=== PATIENT | female | born 1995 | race Caucasian/White ===

== ENCOUNTER 2017-06-30 01:15 | Emergency (ER) | payer SELFPAY ==
[2017-06-30 02:12] LABS: ABSOLUTE EOSINOPHILS # (AUTO) 0.1 10^3/uL (0.0-0.6); ABSOLUTE LYMPHOCYTES (AUTO) 2.5 10^3/uL (0.5-4.7); ABSOLUTE MONOCYTES (AUTO) 0.7 10^3/uL (0.1-1.4); ABSOLUTE NEUT (AUTO) 6.2 10^3/uL (1.7-8.2); BASOPHILS % (AUTO) 0.2 % (0-2); EOSINOPHILS % (AUTO) 0.8 % (0-6); HEMATOCRIT 44.6 % (36.0-47.0); HEMOGLOBIN 15.4 g/dL (12.0-15.5); HGB HCT DIFFERENCE 1.6; LYMPHOCYTES % (AUTO) 26.3 % (13-45); MEAN CORPUSCULAR HEMOGLOBIN 31.7 pg (27.0-33.4); MEAN CORPUSCULAR HGB CONC 34.6 g/dL (32.0-36.0); MEAN CORPUSCULAR VOLUME 92 fl (80-97); MONOCYTES % (AUTO) 7.5 % (3-13); RED BLOOD COUNT 4.86 10^6/uL (3.72-5.28); RED CELL DISTRIBUTION WIDTH 12.6 % (11.5-14.0); SEGMENTED NEUTROPHILS % (AUTO) 65.2 % (42-78); WHITE BLOOD COUNT 9.5 10^3/uL (4.0-10.5)
[2017-06-30] MEDS ORDERED: METOCLOPRAMIDE HCL 10 MG TABLET PO ONE ×2 (02:19→02:54)
[2017-06-30 02:24] LABS: ALANINE AMINOTRANSFERASE 56 U/L (9-52); ALBUMIN 4.4 g/dL (3.5-5.0); ALKALINE PHOSPHATASE 76 U/L (38-126); ANION GAP 13 (5-19); ASPARTATE AMINO TRANSFERASE 44 U/L (14-36); BILIRUBIN,DIRECT 0.3 mg/dL (0.0-0.4); BILIRUBIN,TOTAL 0.7 mg/dL (0.2-1.3); BLOOD UREA NITROGEN 11 mg/dL (7-20); CALCIUM 9.6 mg/dL (8.4-10.2); CARBON DIOXIDE 26 mmol/L (22-30); CHLORIDE 106 mmol/L (98-107); CREATININE RESULT 0.69 mg/dL (0.52-1.25); GLUCOSE 82 mg/dL (75-110); POTASSIUM 4.1 mmol/L (3.6-5.0); SODIUM 145.2 mmol/L (137-145); TOTAL PROTEIN 7.4 g/dL (6.3-8.2)
--- NOTE | 2017-06-30 02:41 | ER Document Report ---
ED GI/ - General Chief Complaint: Vomiting Stated Complaint: VOMITING Time Seen by Provider: 06/30/17 02:19 Notes: The patient is a 22-year-old female, , LMP 4 weeks ago, presents with 1 day of nausea and vomiting. She took a home test was positive today. She has not been able to eat much earlier today. She denies abdominal pain, hematemesis, urinary symptoms, vaginal bleeding, flank pain, fevers or chest pain. TRAVEL OUTSIDE OF THE [place] IN LAST 30 DAYS: No - Related Data Allergies/Adverse Reactions: No Known Allergies Allergy (Unverified 06/30/17 01:27) Past Medical History - General Information source: Patient - Social History Smoking Status: Never Smoker Family History: Reviewed & Not Pertinent Patient has suicidal ideation: No Patient has homicidal ideation: No Renal/ Medical History: Denies: Hx Peritoneal Dialysis Review of Systems - Review of Systems Notes: REVIEW OF SYSTEMS: CONSTITUTIONAL: -fevers, -chills EENT: -eye pain, -difficulty swallowing, -nasal congestion CARDIOVASCULAR:-chest pain, -syncope. RESPIRATORY: -cough, -SOB GASTROINTESTINAL: -abdominal pain, +nausea, +vomiting, -diarrhea GENITOURINARY: -dysuria, -hematuria MUSCULOSKELETAL: -back pain, -neck pain SKIN: -rash or skin lesions. HEMATOLOGIC: -easy bruising or bleeding. LYMPHATIC: -swollen, enlarged glands. NEUROLOGICAL: -altered mental status or loss of consciousness, -headache, - neurologic symptoms PSYCHIATRIC: -anxiety, -depression. ALL OTHER SYSTEMS REVIEWED AND NEGATIVE. Physical Exam - Vital signs Vitals: Temp Pulse Resp BP Pulse Ox 97.7 F 91 18 121/71 100 06/30/17 01:23 06/30/17 01:23 06/30/17 01:23 06/30/17 01:23 06/30/17 01:23 - Notes Notes: PHYSICAL EXAMINATION: GENERAL: Well-appearing, well-nourished and in no acute distress. HEAD: Atraumatic, normocephalic. EYES: Pupils equal round and reactive to light, extraocular movements intact, sclera anicteric, conjunctiva are normal. ENT: nares patent, oropharynx clear without exudates. Moist mucous membranes. NECK: Normal range of motion, supple without lymphadenopathy LUNGS: Breath sounds clear to auscultation bilaterally and equal. No wheezes rales or rhonchi. HEART: Regular rate and rhythm without murmurs ABDOMEN: Soft, nontender, normoactive bowel sounds. No guarding, no rebound. No masses appreciated. EXTREMITIES: Normal range of motion, no pitting or edema. No cyanosis. NEUROLOGICAL: Cranial nerves grossly intact. Normal speech, normal gait. Normal sensory and motor exams. PSYCH: Normal mood, normal affect. SKIN: Warm, Dry, normal turgor, no rashes or lesions noted. Course - Re-evaluation Re-evalutation: Patient has absolutely no abdominal tenderness or vaginal bleeding. She is about 4 weeks using her last menstrual period. Her urinalysis does not show evidence of UTI. It does show evidence of ketones, but her blood work is fine. Patient is drinking in the emergency room without any nausea or vomiting after oral reglan. Instructed her to stay hydrated and f/u with the [facility]. - Vital Signs Vital signs: Temp Pulse Resp BP Pulse Ox 97.7 F 91 18 121/71 100 06/30/17 01:23 06/30/17 01:23 06/30/17 01:23 06/30/17 01:23 06/30/17 01:23 - Laboratory Result Diagrams: 06/30/17 01:55 06/30/17 01:55 Laboratory results interpreted by me: 06/30/17 06/30/17 01:55 02:46 Sodium 145.2 H AST 44 H ALT 56 H Urine Protein 30 H Urine Ketones 80 H Ur Leukocyte Esterase SMALL H Urine HCG, Qual POSITIVE H Discharge - Discharge Clinical Impression: Vomiting affecting Condition: Stable Disposition: HOME, SELF-CARE Additional Instructions: VOMITING: Vomiting (or nausea without vomiting) can be caused by many other different problems. It can mean that something's wrong with the stomach, such as ulcers or inflammation or the intestinal tract, such as appendicitis. But it can also be a symptom of a problem that has nothing to do with the stomach or intestines. Vomiting is common with severe headaches, earaches, tonsillitis, and kidney infections, etc. We see it with pneumonia or heart attacks. Drugs can cause nausea and vomiting. Many abdominal problems cause vomiting; for example, gallstones, kidney stones, pancreatitis, and intestinal obstruction ( blocked bowels). In most cases, curing the vomiting depends on fixing the problem that caused it. For temporary relief, we may use an anti-nausea medicine. For home use, we can prescribe suppositories, chewable pills, pills that dissolve in the mouth, or liquid anti-nausea drugs. If the vomiting seems to be caused by a problem in the stomach, acid-suppressing drugs may be prescribed as well. It's important to avoid dehydration. Sip small amounts of clear liquids ( soft drinks, tea, broth, etc) . Try to take fluids frequently even if you are vomiting to prevent dehydration. Take increasing amounts of fluid and when liquids are being consumed successfully, advance to small amounts of bland food (toast, soups, mashed potatoes, etc.) until you are able to resume a regular diet. Avoid aspirin, tobacco, and alcohol. If the vomiting worsens, if the problem that's making you vomit worsens, or if there's evidence of bleeding in the stomach (such as black, tarry stool, or bloody or black vomit), you should return immediately. Also, return if abdominal pain worsens or becomes localized to one area or you develop high fever. Call your doctor if you aren't improved in 24 hours. ANTINAUSEA MEDICATION: You have been given a medication to suppress nausea and vomiting. This type of medication can be given as a shot, pill, or suppository. It will usually last for many hours. Pills and shots usually last six to eight hours. For the typical illness, only one or two doses of the medication may be necessary. Mild lightheadedness may occur. This type of medicine can cause drowsiness. Do not drive or operate dangerous machinery while under its influence. Do not mix with alcohol. See your doctor at once if you have muscle spasms or tightness, or uncontrollable motions (particularly of the neck, mouth, or jaw). Persistent vomiting or severe lightheadedness should also be evaluated by the physician. FOLLOW-UP CARE: If you have been referred to a physician for follow-up care, call the physician s office for an appointment as you were instructed or within the next two days. If you experience worsening or a significant change in your symptoms, notify the physician immediately or return to the Emergency Department at any time for re-evaluation. Prescriptions: Doxylamine Succinate/Vit B6 [Hay Arguello 10-10 mg Tablet] 1 each PO Q8H PRN #15 tablet.dr REYES Reason: Referrals: [facility] [Outside] - Follow up as needed
[2017-06-30 03:23] LABS: APPEARANCE,URINE CLOUDY; BILIRUBIN,URINE NEGATIVE (NEGATIVE); GLUCOSE, URINE NEGATIVE (NEGATIVE); KETONES,URINE 80 mg/dL (NEGATIVE); LEUKOCYTE ESTERASE,URINE SMALL (NEGATIVE); NITRITE,URINE NEGATIVE (NEGATIVE); PROTEIN,URINE 30 mg/dL (NEGATIVE); URINE SPECIFIC GRAVITY 1.028; UROBILINOGEN,URINE NEGATIVE mg/dL (<2.0)
[2017-06-30 03:43] LABS: BACTERIA,URINE 3+ /HPF; RBC,URINE NONE SEEN /HPF
[2017-06-30 04:00] VITALS: BP 114/60
== END 2017-06-30 03:45 | disposition home or self-care (01) ==
LOC: ER 01:15
DX: O21.9 Vomiting of pregnancy, unspecified (principal); Z3A.01 Less than 8 weeks gestation of pregnancy
CPT/HCPCS: 36415; 80053; 81001; 81025; 85025; 99284

== ENCOUNTER 2017-12-20 20:45 | Outpatient (CLI) | payer MEDICAID ==
[2017-12-20 21:42] LABS: URINE AMPHETAMINES SCREEN NEGATIVE; URINE BARBITURATES SCREEN NEGATIVE; URINE BENZODIAZEPINES SCREEN NEGATIVE; URINE COCAINE SCREEN NEGATIVE; URINE MARIJUANA (THC) SCREEN NEGATIVE; URINE METHADONE SCREEN NEGATIVE; URINE PHENCYCLIDINE SCREEN NEGATIVE
[2017-12-20 22:10] LABS: APPEARANCE,URINE SLIGHTLY-CLOUDY; BILIRUBIN,URINE NEGATIVE (NEGATIVE); COLOR,URINE YELLOW; GLUCOSE, URINE NEGATIVE (NEGATIVE); KETONES,URINE NEGATIVE (NEGATIVE); LEUKOCYTE ESTERASE,URINE TRACE (NEGATIVE); NITRITE,URINE NEGATIVE (NEGATIVE); PROTEIN,URINE NEGATIVE (NEGATIVE); URINE SPECIFIC GRAVITY 1.013; UROBILINOGEN,URINE NEGATIVE mg/dL (<2.0)
== END 2017-12-20 22:37 | disposition home or self-care (01) ==
LOC: LC 20:45
PROVIDERS: ATTEND Obstetrics & Gynecology
PROC: 4A1HXCZ Monitoring of Products of Conception, Cardiac Rate, External Approach (ICD-10-PCS; principal; 2017-12-20)
DX: O47.03 False labor before 37 completed weeks of gestation, third trimester (principal); O36.8130 Decreased fetal movements, third trimester, not applicable or unspecified; Z3A.29 29 weeks gestation of pregnancy
CPT/HCPCS: 80307; 81001

== ENCOUNTER 2018-12-08 14:28 | Emergency (ER) | payer MEDICAID ==
--- NOTE | 2018-12-08 15:28 | ER Document Report ---
ED Medical Screen (RME) - General Chief Complaint: Nausea/Vomiting Stated Complaint: VOMITING Time Seen by Provider: 12/08/18 15:22 Notes: Patient is a 23-year-old female who presents the emergency department with a chief complaint of nausea and vomiting. She has been vomiting for the past 3 days. She states that she is 3 weeks . Denies any vaginal bleeding. States she was seen at [facility] and her quantitative hCG had not ivan, therefore they had suggested she have a repeat ultrasound done [employer]. States she was also out of her Subutex, Zoloft, and Latuda for the past week, but had them refilled today. Exam: Soft abdomen I have greeted and performed a rapid initial assessment of this patient. A comprehensive ED assessment and evaluation of the patient, analysis of test results and completion of medical decision making process will be conducted by an additional ED providers. TRAVEL OUTSIDE OF THE [place] IN LAST 30 DAYS: No - Related Data Allergies/Adverse Reactions: No Known Allergies Allergy (Verified 12/20/17 21:16) Past Medical History Renal/ Medical History: Denies: Hx Peritoneal Dialysis Physical Exam - Vital signs Vitals: Temp Pulse Resp BP Pulse Ox 97.8 F 71 17 101/66 100 12/08/18 15:13 12/08/18 15:13 12/08/18 15:13 12/08/18 15:13 12/08/18 15:13 Course - Vital Signs Vital signs: Temp Pulse Resp BP Pulse Ox 97.8 F 71 17 101/66 100 12/08/18 15:13 12/08/18 15:13 12/08/18 15:13 12/08/18 15:13 12/08/18 15:13
[2018-12-08] MEDS ORDERED: ONDANSETRON HCL INJ/PF 4 MG/2 ML SDV IV ONE (15:29)
[2018-12-08] MEDS ORDERED: NORMAL SALINE 1000 ML 1,000 ML IV ONE (15:29)
[2018-12-08 17:00] LABS: ABSOLUTE LYMPHOCYTES (AUTO) 1.6 10^3/uL (0.5-4.7); ABSOLUTE MONOCYTES (AUTO) 0.6 10^3/uL (0.1-1.4); BASOPHILS % (AUTO) 0.3 % (0-2); EOSINOPHILS % (AUTO) 0.6 % (0-6); HEMATOCRIT 40.9 % (36.0-47.0); HEMOGLOBIN 13.6 g/dL (12.0-15.5); LYMPHOCYTES % (AUTO) 25.2 % (13-45); MEAN CORPUSCULAR HEMOGLOBIN 27.9 pg (27.0-33.4); MEAN CORPUSCULAR HGB CONC 33.3 g/dL (32.0-36.0); MEAN CORPUSCULAR VOLUME 84 fl (80-97); MONOCYTES % (AUTO) 10.2 % (3-13); PLATELET COUNT 204 10^3/uL (150-450); RED BLOOD COUNT 4.89 10^6/uL (3.72-5.28); RED CELL DISTRIBUTION WIDTH 15.6 % (11.5-14.0); SEGMENTED NEUTROPHILS % (AUTO) 63.7 % (42-78); TOTAL CELLS COUNTED % (AUTO) 100 %; WHITE BLOOD COUNT 6.3 10^3/uL (4.0-10.5)
[2018-12-08 17:16] LABS: APPEARANCE,URINE CLOUDY; BILIRUBIN,URINE NEGATIVE (NEGATIVE); COLOR,URINE AMBER; GLUCOSE, URINE NEGATIVE (NEGATIVE); KETONES,URINE 20 mg/dL (NEGATIVE); LEUKOCYTE ESTERASE,URINE SMALL (NEGATIVE); NITRITE,URINE NEGATIVE (NEGATIVE); PROTEIN,URINE 30 mg/dL (NEGATIVE); URINE SPECIFIC GRAVITY 1.029; UROBILINOGEN,URINE NEGATIVE mg/dL (<2.0)
[2018-12-08 17:47] LABS: ALANINE AMINOTRANSFERASE 57 U/L (9-52); ALBUMIN 4.5 g/dL (3.5-5.0); ALKALINE PHOSPHATASE 67 U/L (38-126); ANION GAP 11 (5-19); ASPARTATE AMINO TRANSFERASE 45 U/L (14-36); BILIRUBIN,DIRECT 0.3 mg/dL (0.0-0.4); BILIRUBIN,TOTAL 0.6 mg/dL (0.2-1.3); BLOOD UREA NITROGEN 10 mg/dL (7-20); CALCIUM 9.8 mg/dL (8.4-10.2); CARBON DIOXIDE 23 mmol/L (22-30); CHLORIDE 106 mmol/L (98-107); GLUCOSE 84 mg/dL (75-110); POTASSIUM 4.9 mmol/L (3.6-5.0); SODIUM 140.1 mmol/L (137-145); TOTAL PROTEIN 8.1 g/dL (6.3-8.2)
[2018-12-08] MEDS ORDERED: ACETAMINOPHEN 325 MG TABLET PO ONE (20:05)
[2018-12-08] MEDS ORDERED: METOCLOPRAMIDE HCL INJ/PF 10 MG/2 ML SDV IV ONE (20:17)
--- NOTE | 2018-12-08 20:26 | RADIOLOGY REPORT (SQ) ---
US PELVIS HISTORY: Early . Pelvic pain. COMPARISON: None. TECHNIQUE: Grayscale, color Doppler, and spectral Doppler ultrasound images of the pelvis were obtained. FINDINGS: There is an intrauterine gestational sac with a yolk sac and pole visualized. The crown-rump length measures 0.6 cm corresponding to 6 weeks 3 days of . The heart rate is 115 bpm. The cervix is 2.2 cm in length. There is a possible fibroid measuring 3.2 cm in the uterus. The right ovary measures 5.5 x 3.0 x 2.5 cm and the left ovary measures 2.9 x 1.3 x 2.4 cm. There is a possible 2.2 cm right ovarian complex cyst. Normal color Doppler blood flow is seen in both ovaries. Small amount of pelvic free fluid is seen. IMPRESSION: Single live IUP with estimated gestational age 6 weeks 3 days.
--- NOTE | 2018-12-08 20:58 | ER Document Report ---
ED GI/ - General Chief Complaint: Nausea/Vomiting Stated Complaint: VOMITING Time Seen by Provider: 12/08/18 15:22 Mode of Arrival: Ambulatory Information source: Patient Notes: Patient is an otherwise healthy 23-year-old female G2, P1 presenting with request for lab work as well as nausea and vomiting. Patient reports she was seen at another emergency department and told that she may be having a miscarriage as her quantitative hCG levels were not rising as they should be. Patient denies any vaginal bleeding or abnormal discharge. She does report severe nausea and vomiting. She has not been able to see her [facility] for this. TRAVEL OUTSIDE OF THE [place] IN LAST 30 DAYS: No - Related Data Allergies/Adverse Reactions: No Known Allergies Allergy (Verified 12/20/17 21:16) Past Medical History - General Information source: Patient - Social History Smoking Status: Never Smoker Frequency of alcohol use: None Drug Abuse: None Family History: Reviewed & Not Pertinent Patient has suicidal ideation: No Patient has homicidal ideation: No Renal/ Medical History: Denies: Hx Peritoneal Dialysis Psychiatric Medical History: Reports: Hx Depression Past Surgical History: Reports: Hx Section - x1 Review of Systems - Review of Systems Constitutional: No symptoms reported EENT: No symptoms reported Cardiovascular: No symptoms reported Respiratory: No symptoms reported Gastrointestinal: Nausea, Vomiting. denies: Abdominal pain Genitourinary: No symptoms reported. denies: Dysuria, Frequency, Flank pain Female Genitourinary: No symptoms reported. denies: Vaginal bleeding Musculoskeletal: No symptoms reported Skin: No symptoms reported Hematologic/Lymphatic: No symptoms reported Neurological/Psychological: No symptoms reported Physical Exam - Vital signs Vitals: Temp Pulse Resp BP Pulse Ox 97.8 F 71 17 101/66 100 12/08/18 15:13 12/08/18 15:13 12/08/18 15:13 12/08/18 15:13 12/08/18 15:13 - Notes Notes: PHYSICAL EXAMINATION: GENERAL: Well-appearing, well-nourished and in no acute distress. HEAD: Atraumatic, normocephalic. EYES: Pupils equal round and reactive to light, extraocular movements intact, conjunctiva are normal. ENT: Nares patent, oropharynx clear without exudates. Moist mucous membranes. NECK: Normal range of motion, supple without lymphadenopathy LUNGS: Breath sounds clear to auscultation bilaterally and equal. No wheezes rales or rhonchi. HEART: Regular rate and rhythm without murmurs ABDOMEN: Soft, nontender, nondistended abdomen. No guarding, no rebound. No masses appreciated. Female : deferred Musculoskeletal: Normal range of motion, no pitting or edema. No cyanosis. NEUROLOGICAL: Cranial nerves grossly intact. Normal speech, normal gait. Normal sensory, motor exams PSYCH: Normal mood, normal affect. SKIN: Warm, Dry, normal turgor, no rashes or lesions noted. Course - Re-evaluation Re-evalutation: CBC and CMP are unremarkable. Quantitative hCG is appropriate for gestational age. Transvaginal ultrasound shows an intrauterine approximate gestation 6 weeks 3 days. Patient will be discharged home with prescription for antiemetics. - Vital Signs Vital signs: Temp Pulse Resp BP Pulse Ox 98.2 F 85 16 99/85 L 100 12/08/18 21:00 12/08/18 21:00 12/08/18 21:00 12/08/18 21:00 12/08/18 21:00 - Laboratory Result Diagrams: 12/08/18 16:42 12/08/18 16:42 Laboratory results interpreted by me: 12/08/18 12/08/18 12/08/18 16:42 16:42 16:42 RDW 15.6 H AST 45 H ALT 57 H Beta HCG, Quant 35919.00 H Urine Protein 30 H Urine Ketones 20 H Ur Leukocyte Esterase SMALL H Discharge - Discharge Clinical Impression: Intrauterine Nausea and vomiting Qualifiers: Vomiting type: unspecified Vomiting Intractability: unspecified Qualified Code(s): R11.2 - Nausea with vomiting, unspecified Condition: Stable Disposition: HOME, SELF-CARE Additional Instructions: Your work-up today was normal. The ultrasound shows a live intrauterine of approximate gestation 6 weeks 1 day. Please follow-up with your [facility]ULTY MEMBER to establish care. Take the Reglan as prescribed for nausea and vomiting. Return to the emergency department with any new or worsening symptoms. Prescriptions: Metoclopramide HCl [Reglan] 5 mg PO Q6H #30 tablet
[2018-12-08 21:02] VITALS: BP 99/85
== END 2018-12-08 21:03 | disposition home or self-care (01) ==
LOC: ER 14:28
DX: O21.9 Vomiting of pregnancy, unspecified (principal); Z3A.01 Less than 8 weeks gestation of pregnancy
CPT/HCPCS: 99284; 96361; 96374; 96375; 36415; 84702; 85025; 80053; 81001; 76817; J3490; J2765; J2405; J7030

== ENCOUNTER 2019-07-23 22:48 | Emergency (ER) | payer MEDICAID ==
[2019-07-24] MEDS ORDERED: ONDANSETRON HCL INJ/PF 4 MG/2 ML SDV IV ONE (01:08)
[2019-07-24] MEDS ORDERED: NORMAL SALINE 1000 ML 1,000 ML IV ONE (01:08)
[2019-07-24 01:39] LABS: ABSOLUTE EOSINOPHILS # (AUTO) 0.1 10^3/uL (0.0-0.6); ABSOLUTE LYMPHOCYTES (AUTO) 1.6 10^3/uL (0.5-4.7); ABSOLUTE MONOCYTES (AUTO) 0.5 10^3/uL (0.1-1.4); ABSOLUTE NEUT (AUTO) 3.9 10^3/uL (1.7-8.2); BASOPHILS % (AUTO) 0.2 % (0-2); EOSINOPHILS % (AUTO) 2.1 % (0-6); HEMATOCRIT 38.2 % (36.0-47.0); HEMOGLOBIN 13.1 g/dL (12.0-15.5); LYMPHOCYTES % (AUTO) 26.1 % (13-45); MEAN CORPUSCULAR HGB CONC 34.3 g/dL (32.0-36.0); MEAN CORPUSCULAR VOLUME 85 fl (80-97); MONOCYTES % (AUTO) 8.8 % (3-13); PLATELET COUNT 193 10^3/uL (150-450); RED BLOOD COUNT 4.52 10^6/uL (3.72-5.28); RED CELL DISTRIBUTION WIDTH 15.6 % (11.5-14.0); SEGMENTED NEUTROPHILS % (AUTO) 62.8 % (42-78); TOTAL CELLS COUNTED % (AUTO) 100 %; WHITE BLOOD COUNT 6.1 10^3/uL (4.0-10.5)
[2019-07-24 01:40] LABS: ADD MANUAL MICROSCOPIC YES; APPEARANCE,URINE CLOUDY; BILIRUBIN,URINE SMALL (NEGATIVE); COLOR,URINE DARK YELLOW; GLUCOSE, URINE NEGATIVE (NEGATIVE); KETONES,URINE 25 mg/dL (NEGATIVE); LEUKOCYTE ESTERASE,URINE TRACE (NEGATIVE); NITRITE,URINE NEGATIVE (NEGATIVE); PROTEIN,URINE 30 mg/dL (NEGATIVE); URINE SPECIFIC GRAVITY 1.028
[2019-07-24 01:41] LABS: BACTERIA,URINE 2+ /HPF; RBC,URINE NONE SEEN /HPF
[2019-07-24 01:55] LABS: ALBUMIN 3.8 g/dL (3.5-5.0); ALKALINE PHOSPHATASE 64 U/L (38-126); ANION GAP 9 (5-19); ASPARTATE AMINO TRANSFERASE 24 U/L (14-36); BILIRUBIN,DIRECT 0.2 mg/dL (0.0-0.4); BILIRUBIN,TOTAL 0.4 mg/dL (0.2-1.3); BLOOD UREA NITROGEN 8 mg/dL (7-20); CALCIUM 9.3 mg/dL (8.4-10.2); CARBON DIOXIDE 28 mmol/L (22-30); CHLORIDE 102 mmol/L (98-107); GLUCOSE 97 mg/dL (75-110); POTASSIUM 3.8 mmol/L (3.6-5.0)
[2019-07-24 02:33] VITALS: BP 103/64
[2019-07-24] MEDS ORDERED: ONDANSETRON HCL INJ/PF 4 MG/2 ML SDV ONE (04:42)
--- NOTE | 2019-07-24 06:56 | ER Document Report ---
ED General - General Chief Complaint: Nausea/Vomiting Stated Complaint: VOMITING - 16 WEEKS Time Seen by Provider: 07/24/19 06:03 TRAVEL OUTSIDE OF THE [place] IN LAST 30 DAYS: No - HPI Notes: Patient is a 24-year-old female, G2, P1 at approximately 16 weeks gestation, who presents to the emergency department for evaluation of vomiting. She states she is been vomiting daily for at least the last month. She has not yet seen OB, has her first appointment on August 02. She states that she was seen by an urgent care and prescribed Zofran which was no help. She states the emesis that she has is entirely the food and drink that she tries to ingest. She is still urinating. She denies any dysuria or hematuria. She has no vaginal bleeding. She denies any pain of any sort at this time. - Related Data Allergies/Adverse Reactions: No Known Allergies Allergy (Verified 07/24/19 01:08) Home Medications: Gummy vitamins Past Medical History - General Information source: Patient - Social History Smoking Status: Current Some Day Smoker Chew tobacco use (# tins/day): No Frequency of alcohol use: None Drug Abuse: None Family History: Reviewed & Not Pertinent Patient has suicidal ideation: No Patient has homicidal ideation: No - Medical History Medical History: Negative Renal/ Medical History: Denies: Hx Peritoneal Dialysis Psychiatric Medical History: Reports: Hx Depression Past Surgical History: Reports: Hx Section - x1 Review of Systems - Review of Systems Constitutional: No symptoms reported EENT: No symptoms reported Cardiovascular: No symptoms reported Respiratory: No symptoms reported Gastrointestinal: See HPI Genitourinary: No symptoms reported Female Genitourinary: See HPI Musculoskeletal: No symptoms reported Skin: No symptoms reported Neurological/Psychological: No symptoms reported Physical Exam - Vital signs Vitals: Pulse Resp BP Pulse Ox 87 20 129/66 H 95 07/23/19 23:11 07/23/19 23:11 07/23/19 23:11 07/23/19 23:11 - Notes Notes: Vital signs reviewed, please refer to chart. Head is normocephalic, atraumatic. Pupils equal round, reactive to light. Neck is supple without meningismus. Heart is regular rate and rhythm. Lungs are clear to auscultation bilaterally. Abdomen is soft, nontender, normoactive bowel sounds throughout. Extremities without cyanosis, clubbing. Posterior calves are nontender. Peripheral pulses are equal. Skin is warm and dry. Patient is awake, alert, neurological exam is nonfocal. Course - Re-evaluation Re-evalutation: 07/24/19 06:52 Patient presents emergency department for evaluation of nausea and vomiting. She had initial orders placed through protocol. Laboratory investigations were ordered. No significant signs of dehydration were found. The patient does have some small ketones. When I entered the room, patient was drinking strawberry banana milk, eating potato chips and a candy bar. I explained to her that when vomiting these would be not the ideal choices in regards to foods. We discussed what would be more appropriate. I will send her home with a prescription for diclegis, a work note, and referral back to OB. She is to return to the emergency department with worsening or new concerning symptoms. - Vital Signs Vital signs: Temp Pulse Resp BP Pulse Ox 97.5 F 87 18 103/64 100 07/24/19 02:32 07/24/19 02:32 07/24/19 02:32 07/24/19 02:32 07/24/19 02:32 - Laboratory Result Diagrams: 07/24/19 01:20 07/24/19 01:20 Laboratory results interpreted by me: 07/24/19 07/24/19 01:20 01:20 RDW 15.6 H Urine Protein 30 H Urine Ketones 25 H Urine Bilirubin SMALL H Urine Urobilinogen 2.0 H Ur Leukocyte Esterase TRACE H Urine Ascorbic Acid 20 H - EKG Interpretation by Me Additional EKG results interpreted by me: 07/24/19 06:53 Sinus mechanism with a rate of 63 bpm. Normal axis and intervals, no acute ST changes concerning for ischemia or infarction. Discharge - Discharge Clinical Impression: Nausea and vomiting during prior to 22 weeks gestation Condition: Stable Disposition: HOME, SELF-CARE Instructions: Antinausea Medication ([facility]), Intravenous (IV) Fluids ([facility]) Additional Instructions: Please take diclegis as directed, watch for dizziness and drowsiness with this. Small, frequent sips of fluids. Avoid greasy, acidic foods. Follow-up with OB as scheduled on the sixth. Return to the ED with worsening or new concerning symptoms of any sort. Forms: Return to Work
--- NOTE | 2019-07-24 13:44 | EKG REPORT ---
SEVERITY:- NORMAL ECG - SINUS RHYTHM : Confirmed by: Danae Newsome MD 24-Jul-2019 13:44:17
== END 2019-07-24 07:23 | disposition home or self-care (01) ==
LOC: ER 22:48
DX: O21.9 Vomiting of pregnancy, unspecified (principal); Z3A.16 16 weeks gestation of pregnancy; O99.332 Smoking (tobacco) complicating pregnancy, second trimester; F17.200 Nicotine dependence, unspecified, uncomplicated; Z79.899 Other long term (current) drug therapy
CPT/HCPCS: 93005; 99284; 96361; 96374; 36415; 85025; 80053; 81001; 93010; J2405; J7030

== ENCOUNTER 2019-11-12 05:53 | Emergency (ER) | payer MEDICAID ==
[2019-11-12 05:57] VITALS: BP 125/75
[2019-11-12] MEDS ORDERED: LIDOCAINE 2% VISCOUS SOLN 15 ML UDCUP PO ONE (06:24)
[2019-11-12] MEDS ORDERED: MAG HYDROX/AL HYDROX/SIMETH SUSP 30 ML UDCUP PO ONE (06:24)
[2019-11-12] MEDS ORDERED: METOCLOPRAMIDE HCL ORAL SOLN 10 MG/10 ML UDCUP PO ONE (06:24)
--- NOTE | 2019-11-12 06:29 | ER Document Report ---
ED General - General Chief Complaint: Nausea Stated Complaint: HEARTBURN Time Seen by Provider: 11/12/19 06:09 Mode of Arrival: Ambulatory Information source: Patient TRAVEL OUTSIDE OF THE [place] IN LAST 30 DAYS: No - HPI Onset: Other - over the last few days Onset/Duration: Gradual Quality of pain: Achy Severity: Mild Pain Level: 1 Associated symptoms: Headache, Sore throat, Other - throat swelling, leg swelling Exacerbated by: Denies Relieved by: Denies Similar symptoms previously: No Recently seen / treated by doctor: No Notes: 24 year old female who is 32 weeks here in the ER for GERD, a sore throat/swollen throat sensation, a headache, and some leg swelling. The patient had pre-eclampsia with her first and she is concerned she could have pre-eclampsia with her current . The patient had outpatient labs and a UA done at her [facility] on Friday this week but she has not been told of the results. The patient denies fevers, chills, sweats, nausea, vomiting, abdominal pain, vaginal bleeding. The patient denies sick contacts or recent travel. - Related Data Allergies/Adverse Reactions: No Known Allergies Allergy (Verified 07/24/19 01:08) Past Medical History - General Information source: Patient - Social History Smoking Status: Never Smoker Frequency of alcohol use: None Drug Abuse: None Lives with: Family Family History: Reviewed & Not Pertinent Patient has suicidal ideation: No Patient has homicidal ideation: No Renal/ Medical History: Denies: Hx Peritoneal Dialysis Psychiatric Medical History: Reports: Hx Depression Past Surgical History: Reports: Hx Section - x1 Review of Systems - Review of Systems Constitutional: No symptoms reported EENT: Throat pain, Throat swelling Cardiovascular: No symptoms reported Respiratory: No symptoms reported Gastrointestinal: No symptoms reported Genitourinary: No symptoms reported Female Genitourinary: No symptoms reported Musculoskeletal: Other - leg swelling bilaterally Skin: No symptoms reported Hematologic/Lymphatic: No symptoms reported Neurological/Psychological: Headaches -: Yes All other systems reviewed and negative Physical Exam - Vital signs Vitals: Temp Pulse Resp BP Pulse Ox 98.1 F 90 20 125/75 98 11/12/19 05:55 11/12/19 05:55 11/12/19 05:55 11/12/19 05:55 11/12/19 05:55 - Notes Notes: GENERAL: Well-appearing, well-nourished and in no acute distress. HEAD: Atraumatic, normocephalic. EYES: Pupils equal round and reactive to light, extraocular movements intact, sclera anicteric, conjunctiva are normal. ENT: External ears normal in appearance, nares patent, oropharynx erythematous but without exudates. Uvular midline. No significant swelling noted. Moist mucous membranes. NECK: Normal range of motion, supple without lymphadenopathy or JVD. LUNGS: Breath sounds clear to auscultation bilaterally and equal. No wheezes rales or rhonchi. HEART: Regular rate and rhythm without murmurs, rubs or gallops. ABDOMEN: Gravid appearance. Soft, nontender, normoactive bowel sounds. No guarding, no rebound. No masses appreciated. EXTREMITIES: Normal range of motion, no pitting or edema. No clubbing or cyanosis. NEUROLOGICAL: No focal deficits. Normal speech, normal gait. PSYCH: Normal mood, normal affect. SKIN: Warm, Dry, normal turgor, no rashes or lesions noted. Course - Re-evaluation Re-evalutation: 11/12/19 07:29 I reviewed the patient's outpatient labs from Friday (patient was able to bring them up on her phone) and they are unremarkable and not consistent with pre-elclampsia. The patient had a negative rapid strep test here in the ER. Patient was given a GI Cocktail for her GERD and she was told to use over the counter GERD medications. Patient requested a script for Zantac which she was given. - Vital Signs Vital signs: Temp Pulse Resp BP Pulse Ox 98.1 F 90 20 125/75 98 11/12/19 05:55 11/12/19 05:55 11/12/19 05:55 11/12/19 05:55 11/12/19 05:55 Discharge - Discharge Clinical Impression: Sore throat (viral) GERD (gastroesophageal reflux disease) Qualifiers: Esophagitis presence: without esophagitis Qualified Code(s): K21.9 - Gastro- esophageal reflux disease without esophagitis Condition: Stable Disposition: HOME, SELF-CARE Instructions: Reflux Disease (GERD) ([facility]), Sore Throat ([facility]) Additional Instructions: Drink plenty of fluids in the days to come. Use Tums, Zantac, and Maalox for heart burn. Also consider a PPI (proton pump inhibitor such as Protonix). Use Tylenol for headaches. If your throat is bothering you, try gargling salt water. Your labs from your [facility] appointment are re-assuring and not consistent with pre-eclampsia. Follow up with your [facility] doctor. Prescriptions: Ranitidine HCl [Zantac] 150 mg PO BID PRN #14 tablet PRN Reason:
== END 2019-11-12 07:44 | disposition home or self-care (01) ==
LOC: ER 05:53
DX: O26.93 Pregnancy related conditions, unspecified, third trimester (principal); J02.9 Acute pharyngitis, unspecified; K21.9 Gastro-esophageal reflux disease without esophagitis; R11.0 Nausea; R51 Headache; Z3A.32 32 weeks gestation of pregnancy
CPT/HCPCS: 99283; 87070; 87880; 87077; J3490 ×3

== ENCOUNTER 2020-06-12 03:19 | Emergency (ER) | payer SELFPAY | END 2020-06-12 04:28 | disposition left against medical advice (07) | LOC: ER 03:19 | DX: T40.1X1A Poisoning by heroin, accidental (unintentional), initial encounter (principal); R41.82 Altered mental status, unspecified; F41.9 Anxiety disorder, unspecified | CPT/HCPCS: 99283 ==

== ENCOUNTER 2020-06-29 10:33 | Emergency (ER) | payer SELFPAY ==
--- NOTE | 2020-06-29 11:22 | ER Document Report ---
ED Skin Rash/Insect Bite/Abscs - General Chief Complaint: Abscess Stated Complaint: ABSCESS/UPPER LEFT LEG Time Seen by Provider: 06/29/20 11:09 Primary Care Provider: MAJOR BILLY MD [ACTIVE STAFF] - Follow up as needed Mode of Arrival: Ambulatory Information source: Patient Notes: 25-year-old female with past medical history significant for MRSA presents to [facility] emergency room with a red swollen area to her left thigh for the past week. States it is gotten progressively worse in the past 24 hours. Denies any fevers. Denies any trauma or injury. States she has been taking ibuprofen and Benadryl with some relief. Last dose around 3 AM. No history of previous abscesses that have had to be lanced. States she did have a previous abscess in her left axillary region but did not have to have it drained. She denies any chance of . TRAVEL OUTSIDE OF THE [place] IN LAST 30 DAYS: No - Related Data Allergies/Adverse Reactions: No Known Allergies Allergy (Verified 06/29/20 10:51) Past Medical History - General Information source: Patient - Social History Smoking Status: Current Every Day Smoker Chew tobacco use (# tins/day): No Frequency of alcohol use: Social Drug Abuse: None Family History: Reviewed & Not Pertinent Patient has homicidal ideation: No Renal/ Medical History: Denies: Hx Peritoneal Dialysis Psychiatric Medical History: Reports: Hx Depression Past Surgical History: Reports: Hx Section - x1 Review of Systems - Review of Systems Constitutional: No symptoms reported Cardiovascular: No symptoms reported Respiratory: No symptoms reported Musculoskeletal: No symptoms reported Skin: Lumps Hematologic/Lymphatic: No symptoms reported Neurological/Psychological: No symptoms reported -: Yes All other systems reviewed and negative Physical Exam - Vital signs Vitals: Temp Pulse Resp BP Pulse Ox 98.0 F 118 H 20 124/72 98 06/29/20 10:38 06/29/20 10:38 06/29/20 10:38 06/29/20 10:38 06/29/20 10:38 - General General appearance: Appears well, Alert In distress: Mild - Respiratory Respiratory status: No respiratory distress Chest status: Nontender Breath sounds: Normal Chest palpation: Normal - Cardiovascular Rhythm: Tachycardia Heart sounds: Normal auscultation Murmur: No - Extremities General upper extremity: Normal inspection, Nontender, Normal color, Normal ROM, Normal temperature General lower extremity: Tender - 5 to 7 cm erythematous, warm, tender, nonfluctuant abscess noted to the left anterior thigh., Normal ROM, Normal weight bearing. No: Hattie's sign - Neurological Neuro grossly intact: Yes Cognition: Normal Orientation: AAOx4 [place] Coma Scale Eye Opening: Spontaneous Tia Coma Scale Verbal: Oriented [place] Coma Scale Motor: Obeys Commands [place] Coma Scale Total: 15 Speech: Normal Motor strength normal: LUE, RUE, LLE, RLE Sensory: Normal - Skin Skin Temperature: Warm Skin Moisture: Dry Skin Color: Erythema Skin irregularity: Abscess - 5 x 7 cm nonfluctuant erythematous, warm, tender abscess noted to the left anterior thigh. There is no active discharge or draining noted. Character of irregularity: Erythematous Irregularity with: Tenderness, Warmth Course - Re-evaluation Re-evalutation: 06/29/20 11:25 Patient with a nonfluctuant abscess to her left anterior thigh. Counseled on warm compresses 20 minutes 3 times a day. Antibiotics as prescribed. Outpatient follow-up with general surgery if not improving in 2 to 3 days. On- call physician will be provided. Patient was given strict return to the emergency room guidelines. Return for any new or worsening symptoms. All questions were answered. Patient verbalized understanding and agrees with plan of care. 06/29/20 11:28 - Vital Signs Vital signs: Temp Pulse Resp BP Pulse Ox 98.0 F 118 H 20 124/72 98 06/29/20 10:38 06/29/20 10:38 06/29/20 10:38 06/29/20 10:38 06/29/20 10:38 Discharge - Discharge Clinical Impression: Abscess of left thigh, Cellulitis of left thigh Condition: Stable Disposition: HOME, SELF-CARE Instructions: Abscess ([facility]), Cellulitis ([facility]) Additional Instructions: You were seen for an abscess that did not require drainage. Take antibiotics as prescribed. Warm compresses 20 minutes 3 times a day. Outpatient follow-up with general surgery as discussed. Please return if you develop fever, vomiting, the pain at the site worsens, you notice spreading redness from the area, or you have any other symptoms that are concerning to you. Prescriptions: Clindamycin HCl 300 mg PO QID #40 capsule Referrals: MAJOR BILLY MD [ACTIVE STAFF] - Follow up as needed
[2020-06-29 12:04] VITALS: BP 110/61
== END 2020-06-29 11:57 | disposition home or self-care (01) ==
LOC: ER 10:33
DX: L02.416 Cutaneous abscess of left lower limb (principal); L03.116 Cellulitis of left lower limb; R00.0 Tachycardia, unspecified; F17.200 Nicotine dependence, unspecified, uncomplicated; Z86.73 Personal history of transient ischemic attack (TIA), and cerebral infarction without residual deficits
CPT/HCPCS: 99283

== ENCOUNTER 2020-06-29 22:10 | Emergency (ER) | payer SELFPAY ==
[2020-06-29 22:25] VITALS: BP 120/69
== END 2020-06-29 22:53 | disposition left against medical advice (07) ==
LOC: ER 22:10
DX: Z53.21 Procedure and treatment not carried out due to patient leaving prior to being seen by health care provider (principal)

== ENCOUNTER 2020-08-05 21:19 | Emergency (ER) | payer SELFPAY ==
[2020-08-05 21:31] VITALS: BP 100/64
[2020-08-05] MEDS ORDERED: CEFTRIAXONE INJ 250 MG VIAL IM ONE (23:37)
[2020-08-05] MEDS ORDERED: AZITHROMYCIN 1 GM SUSP PACKET PO ONE (23:38)
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
[2020-08-06 01:43] LABS: CHLAM PCR NOT DETECTED (NOT DETECT)
== END 2020-08-06 00:37 | disposition home or self-care (01) ==
LOC: ER 21:19
DX: T76.21XA Adult sexual abuse, suspected, initial encounter (principal); R41.82 Altered mental status, unspecified; F17.200 Nicotine dependence, unspecified, uncomplicated
CPT/HCPCS: 99284; 96372; 87491; 87591; Q0144; J0696

== ENCOUNTER 2020-08-22 23:18 | Emergency (ER) | payer SELFPAY ==
--- NOTE | 2020-08-23 00:46 | ER Document Report ---
ED Medical Screen (RME) - General Chief Complaint: Abscess Stated Complaint: POSSIBLE ABSCESS LEFT LEG Time Seen by Provider: 08/23/20 00:40 Mode of Arrival: Ambulatory Information source: Patient Notes: HPI; patient presents to the emergency room complaining of sores on her legs for the past several months. States they come and go but have gotten worse over the past few weeks. States she was here in June and had an abscess on her left thigh that was treated with clindamycin. She denies any fevers. No trauma no injury. States she is now getting them more frequently. States her last menstrual cycle was a little over a month ago she is concerned for . Would like a test. She been taking Tylenol with some relief. PE: Alert and oriented x3. Lungs: Clear to auscultation without rales, rhonchi, wheezes. Heart: Regular rate rhythm without murmurs, rubs, gallops. Unable to do a full evaluation in triage. I have greeted and performed a rapid initial assessment of this patient. A comprehensive ED assessment and evaluation of the patient, analysis of test results and completion of the medical decision making process will be conducted by additional ED providers. I have specifically instructed the patient or family members with the patient to immediately return to any nursing staff should anything change in the patient's condition or with their chief complaint. TRAVEL OUTSIDE OF THE [place] IN LAST 30 DAYS: No - Related Data Allergies/Adverse Reactions: No Known Allergies Allergy (Verified 06/29/20 10:51) Past Medical History Renal/ Medical History: Denies: Hx Peritoneal Dialysis Psychiatric Medical History: Reports: Hx Depression Past Surgical History: Reports: Hx Section - x1 Physical Exam - Vital signs Vitals: Temp Pulse Resp BP Pulse Ox 97.9 F 99 17 118/60 99 08/22/20 23:47 08/22/20 23:47 08/22/20 23:47 08/22/20 23:47 08/22/20 23:47 Course - Vital Signs Vital signs: Temp Pulse Resp BP Pulse Ox 97.9 F 99 17 118/60 99 08/22/20 23:47 08/22/20 23:47 08/22/20 23:47 08/22/20 23:47 08/22/20 23:47
[2020-08-23 01:20] LABS: ABSOLUTE EOSINOPHILS # (AUTO) 0.1 10^3/uL (0.0-0.6); ABSOLUTE LYMPHOCYTES (AUTO) 1.6 10^3/uL (0.5-4.7); ABSOLUTE MONOCYTES (AUTO) 0.5 10^3/uL (0.1-1.4); ABSOLUTE NEUT (AUTO) 2.9 10^3/uL (1.7-8.2); BASOPHILS % (AUTO) 0.4 % (0-2); EOSINOPHILS % (AUTO) 1.7 % (0-6); HEMATOCRIT 35.4 % (36.0-47.0); HEMOGLOBIN 11.3 g/dL (12.0-15.5); LYMPHOCYTES % (AUTO) 30.3 % (13-45); MEAN CORPUSCULAR HEMOGLOBIN 23.7 pg (27.0-33.4); MEAN CORPUSCULAR HGB CONC 31.8 g/dL (32.0-36.0); MEAN CORPUSCULAR VOLUME 75 fl (80-97); MONOCYTES % (AUTO) 10.5 % (3-13); PLATELET COUNT 301 10^3/uL (150-450); RED BLOOD COUNT 4.75 10^6/uL (3.72-5.28); RED CELL DISTRIBUTION WIDTH 17.7 % (11.5-14.0); SEGMENTED NEUTROPHILS % (AUTO) 57.1 % (42-78); TOTAL CELLS COUNTED % (AUTO) 100 %; WHITE BLOOD COUNT 5.2 10^3/uL (4.0-10.5)
[2020-08-23 01:55] LABS: ALBUMIN 3.8 g/dL (3.5-5.0); ALKALINE PHOSPHATASE 103 U/L (38-126); ANION GAP 9 (5-19); ASPARTATE AMINO TRANSFERASE 34 U/L (14-36); BILIRUBIN,DIRECT 0.1 mg/dL (0.0-0.4); BILIRUBIN,TOTAL 0.3 mg/dL (0.2-1.3); BLOOD UREA NITROGEN 10 mg/dL (7-20); CALCIUM 9.3 mg/dL (8.4-10.2); CARBON DIOXIDE 30 mmol/L (22-30); CHLORIDE 99 mmol/L (98-107); GLUCOSE 104 mg/dL (75-110); POTASSIUM 4.9 mmol/L (3.6-5.0); TOTAL PROTEIN 7.4 g/dL (6.3-8.2)
--- NOTE | 2020-08-23 02:58 | ER Document Report ---
HPI - HPI Time Seen by Provider: 08/23/20 00:40 Pain Level: 2 Notes: Otherwise healthy 25-year-old female presented to emergency department chief complaint of multiple abscesses. Patient reports she was seen in this emergency department earlier this month for abscesses, started on clindamycin, the "abscesses got better" but then they came back. Patient denies any ongoing IV drug use. She denies any fever or chills. - ROS Systems Reviewed and Negative: Yes All other systems reviewed and negative - REPRODUCTIVE LMP: 4 wks ago Reproductive: DENIES: : - DERM Notes: See HPI Past Medical History - General Information source: Patient - Social History Smoking Status: Current Every Day Smoker Frequency of alcohol use: None Drug Abuse: None - Denies Family History: Reviewed & Not Pertinent Renal/ Medical History: Denies: Hx Peritoneal Dialysis Psychiatric Medical History: Reports: Hx Depression Past Surgical History: Reports: Hx Section - x1 Vertical Provider Document - CONSTITUTIONAL Notes: PHYSICAL EXAMINATION: GENERAL: Well-appearing, well-nourished and in no acute distress. HEAD: Atraumatic, normocephalic. EYES: Pupils equal round and reactive to light, extraocular movements intact, conjunctiva are normal. ENT: Nares patent, oropharynx clear without exudates. Moist mucous membranes. NECK: Normal range of motion, supple without lymphadenopathy LUNGS: Breath sounds clear to auscultation bilaterally and equal. No wheezes rales or rhonchi. HEART: Regular rate and rhythm without murmurs ABDOMEN: Soft, nontender, nondistended abdomen. No guarding, no rebound. No masses appreciated. Female : deferred Musculoskeletal: Normal range of motion, no pitting or edema. No cyanosis. NEUROLOGICAL: Cranial nerves grossly intact. Normal speech, normal gait. Normal sensory, motor exams PSYCH: Normal mood, normal affect. SKIN: Scattered skin lesions in various stages of healing, no fluctuance. - INFECTION CONTROL TRAVEL OUTSIDE OF THE [place] IN LAST 30 DAYS: No Course - Vital Signs Vital signs: Temp Pulse Resp BP Pulse Ox 97.9 F 99 17 118/60 99 08/22/20 23:47 08/22/20 23:47 08/22/20 23:47 08/22/20 23:47 08/22/20 23:47 - Laboratory Results Result Diagrams: 08/23/20 01:02 08/23/20 01:02 Laboratory Results Interpreted: 08/23/20 01:02 Hgb 11.3 L Hct 35.4 L MCV 75 L MCH 23.7 L MCHC 31.8 L RDW 17.7 H Critical Laboratory Results Reviewed: No Critical Results - Radiology Results Critical Radiology Results Reviewed: No Critical Results Discharge - Discharge Clinical Impression: Skin rash Condition: Stable Disposition: HOME, SELF-CARE Additional Instructions: Follow up with dermatology and primary care as discussed. Prescriptions: Norgestimate-Ethinyl Estradiol [Ortho Tri-Cyclen 28 Tablet] 1 each PO ASDIR PRN 60 Days #2 each PRN Reason: Doxycycline Hyclate [Vibramycin 100 mg Tablet] 100 mg PO BID #60 tablet Referrals: ROBIN ABRAMS DO [ACTIVE STAFF] - Follow up as needed [facility] [Provider Group] - Follow up as needed
[2020-08-23 03:10] VITALS: BP 128/64
== END 2020-08-23 03:10 | disposition home or self-care (01) ==
LOC: ER 23:18
DX: R21 Rash and other nonspecific skin eruption (principal); F17.200 Nicotine dependence, unspecified, uncomplicated
CPT/HCPCS: 36415; 80053; 83605; 84703; 85025; 99283